=== PATIENT | female | born 1990 | race Caucasian/White ===

== ENCOUNTER 2020-03-21 22:00 | Inpatient (IN) ==
[2020-03-23] MEDS ORDERED: miSOPROStoL 25 MCG TABLET PO PRN (00:01)
[2020-03-23] MEDS ORDERED: Famotidine 20 MG/2 ML VIAL IVP PRN (00:02)
[2020-03-23] MEDS ORDERED: Naloxone 0.4 MG/ML INJ IVP PRN (00:02)
[2020-03-23] MEDS ORDERED: Ondansetron 4 MG/2 ML VIAL IVP PRN (00:02)
[2020-03-23] MEDS ORDERED: Lidocaine 1% 20 ML MDV INFILT PRN (00:02)
[2020-03-23] MEDS ORDERED: Metoclopramide 10 MG/2 ML VIAL IVP PRN (00:02)
[2020-03-23] MEDS ORDERED: Oxytocin 20 units/ LR 1000 mL 20 UNIT/1,000 ML BAG IVC SCH (00:15)
[2020-03-23] MEDS ORDERED: Ringers Solution, Lactated 1,000 ML IVC SCH (00:15)
[2020-03-23 00:57] LABS: Amphetamine Screen,Urine Negative ng/mL (Cutoff=1000); Barbiturate Screen,Urine Negative ng/mL (Cutoff=200); Basophils % 0.1 %; Benzodiazepines Screen,Urine Negative ng/mL (Cutoff=200); Cannabinoid Screen,Urine Negative ng/mL (Cutoff = 50); Cocaine Screen,Urine Negative ng/mL (Cutoff= 300); Eosinophils % 0.2 %; Hematocrit 37.2 % (35.3-44.9); Hemoglobin 12.1 g/dL (11.5-15.4); Immature Granulocytes % 0.2 % (0-4); Lymphocytes # 2.2 K/mcL (0.6-4.6); Lymphocytes % 24.3 %; Mean Corpuscular HGB Conc 32.5 g/dL (31.6-35.5); Mean Corpuscular Hemoglobin 29.6 pg (28.0-33.3); Mean Platelet Volume 9.9 fL (9.4-12.4); Monocytes # 0.7 K/mcL (0.0-1.3); Monocytes % 7.2 %; Neutrophils # 6.1 K/mcL (1.6-8.9); Opiate Screen,Urine Negative ng/mL (Cutoff=300); Phencyclidine Screen,Urine Negative ng/mL (Cutoff=25); Platelet Count 237 K/mcL (140-400); Red Blood Count 4.09 M/mcL (3.82-4.97)
[2020-03-23 01:07] LABS: Alanine Aminotransferase 12 Units/L (7-52); Aspartate Amino Transferase 17 Units/L (13-39); BUN/Creatinine Ratio 13 (6-26); Blood Urea Nitrogen 7 mg/dL (6-20); Lactate Dehydrogenase 156 Units/L (140-271); Uric Acid 3.7 mg/dL (2.3-7.6); eGFR For African Americans > 60 (> 60); eGFR For Non-African Americans > 60 (> 60)
[2020-03-23 01:25] LABS: Creatinine,Urine 196 mg/dL; Protein/Creatinine Ratio,Urine 0.41 mg/mg (0.00-0.20)
[2020-03-23] MEDS ORDERED: *HR* Labetalol 20 MG/4 ML SYRINGE IVP ONE ×3 (01:37→02:10)
[2020-03-23] MEDS ORDERED: Calcium Gluconate 1,000 MG/10 ML VIAL IVP PRN ×2 (02:08→20:39)
[2020-03-23] MEDS: Magnesium Sulf 20 gm/SW 500mL 20 GM/500 ML IV.SOLN IVC SCH ×3 (02:50→21:32)
[2020-03-23] MEDS ORDERED: Ringers Solution, Lactated 1,000 ML IVC ONE (02:55)
[2020-03-23] MEDS ORDERED: Acetaminophen 325 MG TABLET PO ONE (05:52)
[2020-03-23] MEDS ORDERED: Bupivacaine-MPF 0.25% 10 ML VIAL EP ONE (07:54)
[2020-03-23] MEDS ORDERED: EPHEDrine 50 MG/ML VIAL IVP PRN (07:54)
[2020-03-23] MEDS ORDERED: *HR* FentaNYL (PF) 100 MCG/2 ML VIAL EP ONE (07:54)
[2020-03-23] MEDS ORDERED: *HR* FentaNYL (PF) 100 MCG/2 ML VIAL ONE (07:57)
[2020-03-23] MEDS ORDERED: Bupivacaine-MPF 0.25% 10 ML VIAL ONE (07:57)
[2020-03-23] MEDS ORDERED: Fluconazole 100 MG TABLET PO SCH (09:00)
[2020-03-23] MEDS: Epidural Premix (fent/bupiv) 110 ML EP SCH ×2 (09:47→15:27)
[2020-03-23] MEDS ORDERED: Sennosides 8.6 MG TABLET PO PRN (20:19)
[2020-03-23] MEDS ORDERED: Benzocaine/Menthol 56 GM AEROSOL SPRAY TP PRN (20:19)
[2020-03-23] MEDS ORDERED: Acetaminophen 325 MG TABLET PO PRN (20:19)
[2020-03-23] MEDS: Ibuprofen 600 MG TABLET PO PRN (21:31)
[2020-03-23] MEDS: Oxytocin 20 units/ LR 1000 mL 20 UNIT/1,000 ML BAG IVC SCH (21:32)
[2020-03-24 05:29] LABS: Basophils % 0.2 %; Eosinophils % 0.1 %; Hematocrit 26.4 % (35.3-44.9); Immature Granulocytes % 0.3 % (0-4); Lymphocytes # 1.7 K/mcL (0.6-4.6); Lymphocytes % 14.5 %; Mean Corpuscular HGB Conc 32.6 g/dL (31.6-35.5); Mean Corpuscular Hemoglobin 30.1 pg (28.0-33.3); Mean Corpuscular Volume 92.3 fL (83.0-100.0); Mean Platelet Volume 10.1 fL (9.4-12.4); Monocytes # 1.1 K/mcL (0.0-1.3); Monocytes % 9.1 %; Neutrophils # 8.8 K/mcL (1.6-8.9); Platelet Count 205 K/mcL (140-400); Red Blood Count 2.86 M/mcL (3.82-4.97); Red Cell Distribution Width 14.3 % (11.5-14.5); Segmented Neutrophils % 75.8 %; White Blood Count 11.6 K/mcL (4.3-11.1)
[2020-03-24 05:30] LABS: Hemoglobin 8.6 g/dL (11.5-15.4)
[2020-03-24 05:44] LABS: Aspartate Amino Transferase 19 Units/L (13-39); BUN/Creatinine Ratio 7 (6-26); Blood Urea Nitrogen 4 mg/dL (6-20); eGFR For African Americans > 60 (> 60); eGFR For Non-African Americans > 60 (> 60)
[2020-03-24] MEDS: Oxytocin 20 units/ LR 1000 mL 20 UNIT/1,000 ML BAG IVC SCH (06:56)
[2020-03-24] MEDS: Prenatal Vit/FA 1 EACH TABLET PO SCH (08:32)
[2020-03-24] MEDS: Magnesium Sulf 20 gm/SW 500mL 20 GM/500 ML IV.SOLN IVC SCH (10:31)
[2020-03-24] MEDS: Ibuprofen 600 MG TABLET PO PRN (20:42)
[2020-03-25 05:44] LABS: Basophils % 0.1 %; Eosinophils % 0.3 %; Hematocrit 26.8 % (35.3-44.9); Hemoglobin 8.6 g/dL (11.5-15.4); Immature Granulocytes % 0.3 % (0-4); Lymphocytes # 2.7 K/mcL (0.6-4.6); Lymphocytes % 27.4 %; Mean Corpuscular HGB Conc 32.1 g/dL (31.6-35.5); Mean Corpuscular Volume 93.4 fL (83.0-100.0); Mean Platelet Volume 9.9 fL (9.4-12.4); Monocytes # 0.7 K/mcL (0.0-1.3); Monocytes % 7.1 %; Neutrophils # 6.4 K/mcL (1.6-8.9); Platelet Count 221 K/mcL (140-400); Red Blood Count 2.87 M/mcL (3.82-4.97); Red Cell Distribution Width 14.5 % (11.5-14.5); Segmented Neutrophils % 64.8 %; White Blood Count 9.9 K/mcL (4.3-11.1)
[2020-03-25 07:59] VITALS: BP 143/79
[2020-03-25] MEDS ORDERED: NIFEdipine XL (24 HR) 30 MG TAB.ER.24 PO SCH (09:00)
[2020-03-25] MEDS: Prenatal Vit/FA 1 EACH TABLET PO SCH (09:46)
== END 2020-03-25 15:00 | disposition home or self-care (01) | DRG 806 ==
LOC: 1NENULAB 03-22 23:58 → 1NENUOBS 03-23 21:44
PROVIDERS: ADMIT Student in an Organized Health Care Education/Training Program; ATTEND Student in an Organized Health Care Education/Training Program